=== PATIENT | male | born 1990 | race Two or more races ===

== ENCOUNTER 2017-07-28 04:01 | Emergency (ER) | payer SELFPAY ==
[2017-07-28 04:28] VITALS: BMI 17.9
[2017-07-28 04:30] VITALS: TEMP 98.6
--- NOTE | 2017-07-28 05:11 | ED PDOC ---
HPI: Psych/Substance Abuse Time Seen by Provider: 07/28/17 04:29 Chief Complaint (Nursing): Alcohol Ingestion Chief Complaint (Provider): ETOH History Per: Patient History/Exam Limitations: no limitations Onset/Duration Of Symptoms: Hrs Current Symptoms Are (Timing): Still Present Modifying Factor(s): Alcohol Additional Complaint(s): 26 y/o male who was brought in by EMS for public intoxication. He admits to consuming "2 bottles of [place]" tonight. Pt. also found to have bleeding on the head. Offers no complaints. Pt. does not remember how he sustained the head injury. Past Medical History Reviewed: Historical Data, Nursing Documentation, Vital Signs Vital Signs: Last Vital Signs Temp 98.6 F 07/28/17 04:28 Pulse 59 L 07/28/17 04:28 Resp 18 07/28/17 04:28 BP 111/70 07/28/17 04:28 Pulse Ox 98 07/28/17 04:28 - Medical History PMH: No Chronic Diseases - Surgical History Surgical History: No Surg Hx - Family History Family History: States: Unknown Family Hx - Allergies Allergies/Adverse Reactions: Allergies Allergy/AdvReac Type Severity Reaction Status Date / Time penicillin G Allergy RASH Verified 07/28/17 04:28 Penicillins Allergy RASH Verified 07/28/17 04:28 Review of Systems ROS Statement: Except As Marked, All Systems Reviewed And Found Negative Physical Exam - Reviewed Nursing Documentation Reviewed: Yes Vital Signs Reviewed: Yes - Physical Exam Appears: Positive for: Well, Non-toxic, No Acute Distress Head Exam: Positive for: NORMOCEPHALIC. Negative for: ATRAUMATIC (superficial abrasion on the right forehead), NORMAL INSPECTION Skin: Positive for: Normal Color, Warm. Negative for: Rash Eye Exam: Positive for: Normal appearance, EOMI, PERRL. Negative for: Periorbital swelling, Periorbital tenderness ENT: Positive for: Normal ENT Inspection, TM Is/Are (no hemotympanum b/l) Neck: Positive for: Normal, Painless ROM Cardiovascular/Chest: Positive for: Regular Rate, Rhythm, Chest Non Tender Respiratory: Positive for: CNT, Normal Breath Sounds Gastrointestinal/Abdominal: Positive for: Normal Exam, Soft, Other (no ecchymosis to abdomen). Negative for: Tenderness Back: Positive for: Normal Inspection. Negative for: L CVA Tenderness, R CVA Tenderness, Vertebral Tenderness (including cervical spine) Extremity: Positive for: Normal ROM Neurologic/Psych: Positive for: Alert (arousable to non-painful tactile stimuli) , Oriented, Other (slurred speech, alcohol on breath). Negative for: Aphasia, Facial Droop - ECG O2 Sat by Pulse Oximetry: 98 - Progress ED Course And Treament: FSBS: 92 CT head w/o contrast: negative. Medical Decision Making Medical Decision Making: Impression: Head Injury, Alcohol Intoxication Plan: - Labs - CT Head Scribe Attestation Documented by Fatou Kaur acting as a scribe for RAY Bailey MD Scribe Attestation All medical record entries made by the Scribe were at my direction and personally dictated by me. I have reviewed the chart and agree that the record accurately reflects my personal performance of the history, physical exam, medical decision making, and the department course for this patient. I have also personally directed, reviewed, and agree with the discharge instructions and disposition. Disposition - Clinical Impression Clinical Impression: Alcohol intoxication, Head injury - Patient ED Disposition Is Patient to be Admitted: Transfer of Care (Dr. Barone continued care at 0611 ) - Disposition Disposition: Transfer of Care Disposition Time: 06:11 Condition: STABLE Forms: [employer] (Vietnamese)
--- NOTE | 2017-07-28 05:23 | CT ---
EXAM: CT Head Without Intravenous Contrast CLINICAL HISTORY: 26 years old, male; Injury or trauma; Fall; Initial encounter; Abrasion; Forehead TECHNIQUE: Axial computed tomography images of the head/brain without intravenous contrast. All CT scans at this facility use one or more dose reduction techniques, viz.: automated exposure control; ma/kV adjustment per patient size (including targeted exams where dose is matched to indication; i.e. head); or iterative reconstruction technique. Coronal and sagittal reformatted images were created and reviewed. COMPARISON: No relevant prior studies available. FINDINGS: Brain: No intracranial hemorrhage. No mass. No edema. Ventricles: No hydrocephalus. Bones/joints: No acute fracture. Soft tissues: Unremarkable. Sinuses: No acute sinusitis. Mastoid air cells: No mastoid effusion. Orbits: Unremarkable as visualized. IMPRESSION: 1. No intracranial hemorrhage.
--- NOTE | 2017-07-28 07:37 | ED PDOC ---
- ECG O2 Sat by Pulse Oximetry: 98 (RA) Pulse Ox Interpretation: Normal - Progress Re-evaluation Time: 10:18 Condition: Improved (Awake alert oriented x 3 no focal neuro deficits) Medical Decision Making Medical Decision Making: Time: 0700 Patient is transferred from Dr. Barone's care to myself pending sobriety. Scribe Attestation: Documented by Shaye Caldera, acting as a scribe for Quique Guaman MD Provider Scribe Attestation: All medical record entries made by the Scribe were at my direction and personally dictated by me. I have reviewed the chart and agree that the record accurately reflects my personal performance of the history, physical exam, medical decision making, and the department course for this patient. I have also personally directed, reviewed, and agree with the discharge instructions and disposition Disposition - Clinical Impression Clinical Impression: Alcohol intoxication, Head injury - POA Present On Arrival: None - Disposition [facility]errals[facility]] Disposition: Routine/Home Disposition Time: 10:20 Condition: FAIR Instructions: Closed Head Injury Forms: [facility] ([place])
[2017-07-28 11:05] VITALS: BP 100/63; PULSE 71; RESP 18; O2SAT 99
== END 2017-07-28 10:40 | disposition home or self-care (01) ==
LOC: H.ER 04:01
DX: F10.129 Alcohol abuse with intoxication, unspecified (principal); S09.90XA Unspecified injury of head, initial encounter; W19.XXXA Unspecified fall, initial encounter; Y92.89 Other specified places as the place of occurrence of the external cause; Z88.0 Allergy status to penicillin
CPT/HCPCS: 70450; 82948; 99283; G0480